=== PATIENT | female | born 1970 | race Caucasian/White ===

== ENCOUNTER → 2024-08-21 07:30 | Outpatient (CLI) | payer OTHER, SELFPAY ==
[2024-08-21 08:23] LABS: Add Manual Diff / Slide Review NO; Basophils Absolute Auto 0 /uL (0-100); Basophils Percent Auto 0.8 % (0-2); Eosinophils Absolute Auto 100 /uL (0-450); Eosinophils Percent Auto 1.4 % (2-4); Hematocrit 41.9 % (36-46); Hemoglobin 13.8 g/dL (12.0-16.0); Lymphocytes Absolute Auto 1600 /uL (1100-4500); Lymphocytes Percent Auto 39.4 % (25-40); Mean Corpuscular HGB Conc 32.9 % (30-36); Mean Corpuscular Hemoglobin 28.4 PG (26-34); Mean Corpuscular Volume 86.5 fL (80-100); Monocytes Absolute Auto 400 /uL (0-900); Monocytes Percent Auto 9.1 % (3-14); Neutrophils Absolute Auto 2000 /uL (1500-7000); Neutrophils Percent Auto 49.3 % (50-75); Platelet Count 300 X10^3/uL (150-400); Red Blood Cell Count 4.84 X10^6/uL (4.0-5.2); Red Cell Distribution Width 12.8 % (11.6-14.8); White Blood Cell Count 4.1 X10^3/uL (4.5-11.0)
[2024-08-21 08:33] LABS: Hemoglobin A1C% w Est Avg Glu 5.2 % (4.0-6.0)
[2024-08-21 08:58] LABS: Alanine Aminotransferase 10 IU/L (<35); Albumin 4.4 g/dL (3.5-5.0); Albumin Globulin Ratio 1.5 (1.0-2.8); Alkaline Phosphatase 50 U/L (38-126); Aspartate Aminotransferase 21 IU/L (14-36); BUN Creatinine Ratio 18.3 (6-22); Bilirubin Total 0.5 mg/dL (0.2-1.3); Blood Urea Nitrogen 13 mg/dL (7-17); Calcium 10.4 mg/dL (8.4-10.2); Carbon Dioxide 29 mmol/L (22-32); Chloride 103 mmol/L (98-107); Cholesterol 212 mg/dL (140-199); Estimated Glomerular Filt Rate > 60 mL/min (>60); Globulin 2.9 g/dL (1.7-4.1); Glucose 97 mg/dL (70-100); HDL Cholesterol 80 mg/dL (40-60); HEMOLYSIS < 15 (0-50); LDL Cholesterol Calculated 115 mg/dL (<100); Potassium 4.1 mmol/L (3.4-5.1); Sodium 135 mmol/L (137-145); Total Protein 7.3 g/dL (6.3-8.2); Triglycerides 86 mg/dL (35-150)
== END ==
PROVIDERS: PCP Family Medicine; Referring Provider Family Medicine; Visit Provider Family Medicine
DX: N95.9 Unspecified menopausal and perimenopausal disorder (principal); R73.03 Prediabetes; G43.909 Migraine, unspecified, not intractable, without status migrainosus; F32.9 Major depressive disorder, single episode, unspecified
CPT/HCPCS: 36415; 80053; 80061; 83036; 85025

== ENCOUNTER → 2024-09-03 07:32 | Outpatient (CLI) | payer OTHER, SELFPAY ==
--- NOTE | 2024-09-03 07:33 | DI.US.S_ITS ---
PROCEDURE: US PELVIC COMPLETE INDICATIONS: IUD check TECHNIQUE: Real-time scanning was performed of the pelvic organs, with image documentation. Additional endovaginal scanning was necessary due to incomplete visualization of the adnexal and endometrial structures by transabdominal scanning. COMPARISON: None. FINDINGS: Uterus: Uterus is anteverted and normal in size at 6.9 x 4.3 x 3.7 cm. The myometrium is homogeneous. The endometrium measures 6 mm combined thickness. Only a portion of the IUD is seen within the endometrial canal centrally. The IUD is not seen in entirety. No fibroids. Ovaries: The right ovary measures 1.8 x 1.5 x 1.2 cm, with a calculated ovarian volume of 2 cc. The left ovary measures 1.8 x 1.7 x 1.6 cm, with a calculated ovarian volume of 3 cc. The ovaries have a normal sonographic appearance. Less than 12 follicles can be seen in each ovary. No adnexal masses are seen. Other: No pathologic free abdominal or pelvic fluid. IMPRESSION: 1. A portion of the IUD is seen within the central uterus. The IUD is not seen in entirety. -Consider further evaluation with pelvic radiograph and/or pelvic MRI. 2. Endometrium measures 6 mm. 3. No significant ovarian cysts. We strive to produce accurate, complete, and clear reports of imaging services. To assist us in improving patient care, this report was composed using standard report templates and voice recognition software. Therefore, it may contain abnormal punctuation, insertions and/or omissions. Occasional wrong-word or sound-alike substitutions may occur. Though we review the report and make efforts to correct it, we do recommend that the report be read carefully in proper context to recognize any text inaccuracies. Dictated by: Thaddeus Jose M.D. on 09/03/2024 at 10:33 Approved by: Thaddeus Jose M.D. on 09/03/2024 at 10:39
== END ==
PROVIDERS: PCP Family Medicine; Referring Provider Family Medicine; Visit Provider Family Medicine
DX: Z30.431 Encounter for routine checking of intrauterine contraceptive device (principal)
CPT/HCPCS: 76830; 76856

== ENCOUNTER → 2024-09-20 10:28 | Outpatient (CLI) | payer OTHER, SELFPAY ==
[2024-09-20 11:31] LABS: Add Manual Diff / Slide Review NO; Basophils Absolute Auto 0 /uL (0-100); Basophils Percent Auto 0.9 % (0-2); Eosinophils Absolute Auto 0 /uL (0-450); Eosinophils Percent Auto 0.6 % (2-4); Hematocrit 41.5 % (36-46); Hemoglobin 13.6 g/dL (12.0-16.0); Lymphocytes Absolute Auto 1400 /uL (1100-4500); Lymphocytes Percent Auto 31.9 % (25-40); Mean Corpuscular HGB Conc 32.9 % (30-36); Mean Corpuscular Hemoglobin 28.4 PG (26-34); Mean Corpuscular Volume 86.5 fL (80-100); Monocytes Absolute Auto 400 /uL (0-900); Monocytes Percent Auto 9.5 % (3-14); Neutrophils Absolute Auto 2400 /uL (1500-7000); Neutrophils Percent Auto 57.1 % (50-75); Platelet Count 302 X10^3/uL (150-400); Red Blood Cell Count 4.79 X10^6/uL (4.0-5.2); Red Cell Distribution Width 13.2 % (11.6-14.8); White Blood Cell Count 4.3 X10^3/uL (4.5-11.0)
== END ==
LOC: LAB 10:29
PROVIDERS: PCP Family Medicine; Referring Provider Family Medicine; Visit Provider Family Medicine
DX: D64.9 Anemia, unspecified (principal)
CPT/HCPCS: 36415; 85025

== ENCOUNTER → 2024-11-02 10:46 | Outpatient (CLI) | payer OTHER, SELFPAY ==
[2024-11-02 11:43] LABS: Add Manual Diff / Slide Review NO; Basophils Absolute Auto 0 /uL (0-100); Basophils Percent Auto 0.8 % (0-2); Eosinophils Absolute Auto 0 /uL (0-450); Eosinophils Percent Auto 0.5 % (2-4); Hematocrit 40.8 % (36-46); Hemoglobin 13.5 g/dL (12.0-16.0); Lymphocytes Absolute Auto 1800 /uL (1100-4500); Lymphocytes Percent Auto 33.1 % (25-40); Mean Corpuscular HGB Conc 33.1 % (30-36); Mean Corpuscular Hemoglobin 28.3 PG (26-34); Mean Corpuscular Volume 85.6 fL (80-100); Monocytes Absolute Auto 500 /uL (0-900); Monocytes Percent Auto 8.2 % (3-14); Neutrophils Absolute Auto 3200 /uL (1500-7000); Neutrophils Percent Auto 57.4 % (50-75); Platelet Count 287 X10^3/uL (150-400); Red Blood Cell Count 4.77 X10^6/uL (4.0-5.2); Red Cell Distribution Width 13.6 % (11.6-14.8); White Blood Cell Count 5.6 X10^3/uL (4.5-11.0)
== END ==
LOC: LAB 10:47
PROVIDERS: PCP Family Medicine; Referring Provider Family Medicine; Visit Provider Family Medicine
DX: Z13.9 Encounter for screening, unspecified (principal); R73.03 Prediabetes; R79.89 Other specified abnormal findings of blood chemistry
CPT/HCPCS: 36415; 85025

== ENCOUNTER → 2024-11-06 11:53 | Outpatient (CLI) | payer OTHER, SELFPAY ==
[2024-11-06 12:44] LABS: Alanine Aminotransferase 10 IU/L (<35); Albumin 4.9 g/dL (3.5-5.0); Albumin Globulin Ratio 1.8 (1.0-2.8); Alkaline Phosphatase 57 U/L (38-126); Aspartate Aminotransferase 23 IU/L (14-36); BUN Creatinine Ratio 18.6 (6-22); Bilirubin Total 0.3 mg/dL (0.2-1.3); Blood Urea Nitrogen 13 mg/dL (7-17); Calcium 10.4 mg/dL (8.4-10.2); Carbon Dioxide 29 mmol/L (22-32); Chloride 104 mmol/L (98-107); Estimated Glomerular Filt Rate > 60 mL/min (>60); Globulin 2.8 g/dL (1.7-4.1); Glucose 96 mg/dL (70-100); HEMOLYSIS < 15 (0-50); Potassium 4.4 mmol/L (3.4-5.1); Sodium 140 mmol/L (137-145); Total Protein 7.7 g/dL (6.3-8.2)
[2024-11-06 14:21] LABS: Vitamin D 25 Hydroxy (D3) 40.2 ng/mL (30.0-100.0)
[2024-11-07 20:11] LABS: Calcium 9.8 mg/dL (8.7-10.2); Parathyroid Hormone, Intact 96 pg/mL (15-65)
== END ==
LOC: LAB 11:54
PROVIDERS: PCP Family Medicine; Referring Provider Family Medicine; Visit Provider Family Medicine
DX: F32.9 Major depressive disorder, single episode, unspecified (principal); R73.03 Prediabetes; N95.9 Unspecified menopausal and perimenopausal disorder
CPT/HCPCS: 36415; 80053; 82306; 82310; 83970

== ENCOUNTER 2024-11-19 08:56 | Day surgery (SDC) | payer OTHER, SELFPAY ==
[2024-11-13 10:24] VITALS: BMI 20.9
[2024-11-19] VITALS (8 sets, daily range): BP systolic 77–131; BP diastolic 35–74; PULSE 61–80; RESP 11–24; TEMP 36.2–36.7; O2SAT 98–100; BMI 20.7
[2024-11-19] MEDS: LACTATED RINGERS 1,000 ML 21 ML IV (09:36)
--- NOTE | 2024-11-19 10:31 | P.HPOB_ITS ---
History of Present Illness History of Present Illness Narrative: Jamila Preston is a 54 year old female 4 para 1 with one arm of ParaGard IUD stuck in the uterus She is here for a hysteroscopic removal of the arm of the ParaGard IUD. ParaGard was placed 10 years ago. COUNTS INCLUDE 234 BEDS AT THE [facility] Medical History (Updated 11/06/24 @ 12:05 by Yadira Hein MD) Allergies (~1996) PTSD (post-traumatic stress disorder) (~1989) Depression Anxiety Headache (~1984) Chicken pox (~1988) Tinnitus (~2018) Frequent UTI Abnormal Pap smear of cervix (~2007) Pre-diabetes (~2022) Migraines (~1984) Surgical History (Updated 08/06/24 @ 19:54 by Ashleigh Harper) Anesthesia History of nasal septoplasty (~1988) H/O LEEP (~2007) History of dilatation and curettage (~2006) Family History (Updated 08/06/24 @ 19:57 by Ashleigh Harper) Mother Mental health problem Brother Overweight Prediabetes Diabetes mellitus Grandfather History of heart disease Hyperlipidemia Hypertension Grandmother Cancer Grandfather Cancer Grandmother History of heart disease Hyperlipidemia Hypertension Family/Other Microcytic anemia Social History household members: spouse Smoking Status: Never smoker alcohol intake: current Meds Home Medications and Allergies Home Medications Medication Instructions Recorded Confirmed Type cholecalciferol (vitamin D3) 50 50 mcg PO DAILY 08/02/24 11/19/24 History mcg (2,000 unit) capsule rizatriptan 5 mg tablet 5 mg PO ONCE 08/02/24 11/19/24 History tretinoin 0.025 % topical cream 1 applic topical BEDTIME 08/02/24 11/19/24 History paroxetine HCl 10 mg tablet 10 mg PO DAILY #30 tabs 10/26/24 11/19/24 Rx loratadine 10 mg tablet (Claritin) 10 mg PO PRN PRN allergies 11/19/24 11/19/24 History Allergies Allergy/AdvReac Type Severity Reaction Status Date / Time No Known Drug Allergies Allergy Verified 11/19/24 09:21 Exam Vital Signs (past 8 hours): - 11/19/24 09:30 Temperature 98.1 F Pulse Rate 61 Respiratory Rate 16 Blood Pressure 108/65 Pulse Oximetry 100 Oxygen Delivery Method Room Air Oxygen Delivery Method Room Air Narrative Exam Narrative: HEENT: No thyromegaly, no anterior cervical or supraclavicular lymphadenopathy. Lungs:Clear to auscultation bilaterally, no wheezes. Cardiovascular: Regular rate and rhythm, no murmurs, rubs, or gallops. Abdomen: No scars. No hepatosplenomegaly. No masses palpable. External genitalia: Normal Vagina: Normal Cervix: Normal Bimanual exam: 8 Week size anteverted uterus. Mobile. Extremities: No edema Assessment & Plan Assessment & Plan narrative: Assessment: 54-year-old 4 para 1 with an arm of the ParaGard IUD stuck in the uterus Plan: Hysteroscopic removal of the arm of the ParaGard IUD. The risks, benefits, and alternatives to the procedure were explained to the patient. The risks including bleeding, infection, and uterine perforation. She understands these risks and agrees to proceed. A full par Q was held and consent form was signed. Time-Based Coding :: [TOTAL MINUTES] spent with patient and on the chart (including review of chart, obtaining history, exam, reviewing outside data, placing orders, documenting exam and treatment plan, and counseling patient) on [DATE].
--- NOTE | 2024-11-19 10:33 | PM.PREOP ---
Pre-operative Note Interval Note History & Physical reviewed/Exam performed by Physician: Yes Changes to H&P: No H&P completed within 30 days and has changed as indicated here:: 11/19/24
[2024-11-19 11:05] LABS: Influenza A - CEPHEID Flu A NEGATIVE (NEGATIVE); Influenza B - CEPHEID Flu B NEGATIVE (NEGATIVE); Respiratory Syncytial Virus Negative (Negative)
[2024-11-19 11:27] LABS: COVID-19 CEPHEID 4-PLEX PCR Negative (Negative)
--- NOTE | 2024-11-19 11:47 | SUR.OPER ---
Lithotomy on padded OR bed, head on pillow, arms secured on padded arm boards at <90 degrees abduction. Legs secured in padded yellow fins stirrups.
[2024-11-19] MEDS: LACTATED RINGERS 1,000 ML 42 ML IV (12:36)
--- NOTE | 2024-11-19 12:40 | P.OP_ITS ---
Operative Date/Time/Diagnoses Date of procedure: 11/19/24 Time of procedure: 12:40 Pre-op diagnosis: Arm of Paragard IUD stuck in uterus Post-op diagnosis: same Procedure & Clinicians Procedure: Procedures Operation Date: 11/19/24 10:30 Actual Procedure Side Surgeon p Hysteroscopic retrieval of arm of IUD Gayle Blackwell MD Indications: 54-year-old with an arm of a ParaGard IUD stuck in the uterus. Surgeon: Gayle Blackwell Anesthesia Type: General (LMA) Operative Notes Findings: 8 week size anteverted uterus Proximally 1.5 cm of ParaGard IUD arm stuck in the midbody of the uterus Closure Type: not applicable Specimen(s): none Estimated blood loss (mL): 5 Blood products transfused: none Procedure in detail: After informed consent was obtained, the patient was taken to the operating room where she was placed in the dorsal supine position. After adequate LMA general anesthesia was achieved, she was placed in the dorsal lithotomy position, and prepped and draped in the usual sterile fashion. A time-out was performed. A b ivalve speculum was placed into the vagina and the anterior lip of the cervix was grasped with a single-tooth tenaculum. The cervical os was sequentially dilated until the hysteroscope could pass easily into the endometrial cavity. Initial inspection showed the arm of the ParaGard IUD horizontally in the midbody of the uterus. Using a small alligator clamp through the operative channel, the arm of the IUD was grasped and removed. The instruments were removed from the uterus. The single-tooth tenaculum was removed from the anterior lip of the cervix. There was a small tear on the anterior lip of the cervix. 2-0 chromic was used in a running fashion to reapproximate. Hemostasis was achieved. The bivalve speculum was removed from the vagina. Sponge, lap, and instrument counts were correct x2. The patient tolerated the procedure well, and was taken to PACU in stable condition. Complications: none Post-operative Condition: stable Disposition: PACU Plan for aftercare: Home after recovery
[2024-11-19] MEDS: ACETAMINOPHEN 325 MG TABLET 975 MG PO (12:45)
[2024-11-19] MEDS: KETOROLAC 30 MG/ML VIAL IV (12:46)
== END 2024-11-19 13:17 | disposition home or self-care (01) ==
PROVIDERS: Nurse Anesthetist, Certified Registered; PCP Family Medicine; Referring Provider Obstetrics & Gynecology; Visit Provider Obstetrics & Gynecology
PROC: 0UDB8ZZ Extraction of Endometrium, Via Natural or Artificial Opening Endoscopic (ICD-10-PCS; CPT 58558; principal; 2024-11-19 10:30)
DX: Z30.432 Encounter for removal of intrauterine contraceptive device (principal); T83.89XA Other specified complication of genitourinary prosthetic devices, implants and grafts, initial encounter; S37.63XA Laceration of uterus, initial encounter
CPT/HCPCS: 58562; 0241U; J1100; J1885; J2405; J2704; J3010

== ENCOUNTER → 2024-11-20 13:06 | Outpatient (CLI) | payer OTHER, SELFPAY ==
--- NOTE | 2024-11-20 13:07 | DI.RAD.S_ITS ---
PROCEDURE: XR DEXA AXIAL SKELETON INDICATIONS: Hypercalcemia, hyperparathyroidism COMPARISON: None. FINDINGS: Lumbar Spine: Bone mineral density 0.884 g/cm2, T score -1.5. Left Femoral Neck: Bone mineral density 0.779 g/cm2, T score -0.6 Left Hip: Bone mineral density 0.851 g/cm2, T score -0.7. Fracture Risk Calculation (when applicable): 10-year fracture risk of a major osteoporotic fracture 4.2 percent and of a hip fracture 0.1 percent. IMPRESSION: Osteopenia---recommend repeat DEXA in 2-3 years for reassessment. Follow-up guidelines as follows: Osteoporosis: Consider a repeat DEXA and Vertebral Fracture Assessment (VFA) exam in 2 years or sooner if medically necessary, to reassess this patient's status. Osteopenia: Consider a repeat DEXA in 2-3 years to reassess this patient's status, or if there is a new clinical indication. Normal: Consider a repeat DEXA in 5 years or sooner, or if there is a new clinical indication. All treatment decisions require clinical judgment and consideration of individual patient factors, including patient preferences, comorbidities, previous drug use, risk factors not captured in the FRAX model (e.g., frailty, falls, vitamin D deficiency, increased bone turnover, interval significant decline in bone density ) and possible under- or over-estimation of fracture risk by FRAX. In addition, the NOF Guide recommends that FDA-approved medical therapies be considered in postmenopausal women and men age >= 50 years with a: * Hip or vertebral (clinical or morphometric) fracture * T-score of <=-2.5 at the spine or hip * Ten-year fracture probability by FRAX of >= 3% for hip fracture or >=20% for major osteoporotic fracture. Dictated by: José Smyth M.D. on 11/20/2024 at 22:34 Approved by: José Smyth M.D. on 11/20/2024 at 22:35
== END ==
LOC: RAD 13:06
PROVIDERS: PCP Family Medicine; Referring Provider Family Medicine; Visit Provider Family Medicine
DX: E21.3 Hyperparathyroidism, unspecified (principal); E83.52 Hypercalcemia; M85.88 Other specified disorders of bone density and structure, other site
CPT/HCPCS: 77080

== ENCOUNTER → 2024-12-11 10:14 | Outpatient (CLI) | payer OTHER, SELFPAY ==
--- NOTE | 2024-12-11 10:15 | DI.MG.S_ITS ---
MM diagnostic mammo BI, US breast RT limited: 12/11/2024 BI-RADS: 2 CLINICAL: 54-year old female for bilateral diagnostic mammogram and right diagnostic breast ultrasound. Tyrer-Cuzick lifetime risk of 13.1%. No personal or first-degree family history of breast cancer. Current reported family history of breast cancer: maternal grandmother and maternal uncle's daughter. The patient reports a palpable abnormality (3 months) and pain (3 months) in the right breast. PRIOR EXAMS 11/03/2022. MAMMOGRAPHY TECHNIQUE: 2D and 3D (tomosynthesis) digital mammographic views obtained, with additional images as needed for full coverage. Current study was also evaluated with a Computer Aided Detection (CAD) system. ULTRASOUND TECHNIQUE TARGETED Right Breast Ultrasound: Real-time ultrasound exam was performed focused to area of clinical and/or imaging concern. Real-time jansen scale and color doppler imaging of the area of clinical interest was performed with image documentation. DENSITY C. The breasts are heterogeneously dense, which may obscure small masses. MAMMOGRAPHY FINDINGS Right (finding-1): Abutting Pectoralis Outer Quadrant, Posterior depth, measuring 0.7 cm: Underlying surface marker and correlating with palpable lump there is a lymph node containing fatty hilum. Right (finding-2): MLO only, Axilla: There is no suspicious mammographic finding to account for concern by the patient of pain/tenderness. No suspicious mass, asymmetry, microcalcification, or other abnormality seen. Left: No suspicious mass, asymmetry, microcalcification, or other abnormality seen. ULTRASOUND FINDINGS Right (finding-1): Upper Outer at 11:00, 9 cm from nipple, measuring 0.8 x 0.5 x 0.4 cm: Correlating with findings on mammogram there is a normal-appearing lymph node present. Right (finding-2): Axilla: No suspicious sonographic finding present. IMPRESSION: Right * No evidence of malignancy with benign findings. Left * No evidence of malignancy. RECOMMENDATIONS * Clinical follow-up is recommended, and further management of palpable abnormalities or other focal signs or symptoms should be based on the results of clinical evaluation. If palpable abnormality or other concerning symptom persists or progresses, further clinical evaluation should be considered. Bilateral * Annual screening mammography. OVERALL ASSESSMENT CATEGORY BI-RADS-2: Benign. The [employer] recommends annual screening mammography beginning at age 40 for women with average risk of breast cancer. ELECTRONICALLY SIGNED: Carine Morocho M.D. on 12/11/2024 at 02:05:59 PM PT Interpreting Station ID: [id number]
== END ==
LOC: MAMMO 10:15
PROVIDERS: PCP Family Medicine; Referring Provider Family Medicine; Visit Provider Family Medicine
DX: N63.10 Unspecified lump in the right breast, unspecified quadrant (principal); R92.333 Mammographic heterogeneous density, bilateral breasts; Z80.3 Family history of malignant neoplasm of breast
CPT/HCPCS: 76642; 77066; G0279